=== PATIENT | female | born 1960 | race Caucasian/White ===

== ENCOUNTER 2020-03-06 23:17 | Emergency (ER) | payer OTHER ==
[~2020-03-06] VITALS: Ht 175.3 cm; Wt 68.0 kg
[2020-03-06 23:24] VITALS: BP 163/85
== END 2020-03-06 23:59 | disposition home or self-care (01) ==
LOC: ER 23:22
DX: R46.1 Bizarre personal appearance (principal); Z71.1 Person with feared health complaint in whom no diagnosis is made; J45.909 Unspecified asthma, uncomplicated; Z98.890 Other specified postprocedural states; Z90.89 Acquired absence of other organs; Z60.2 Problems related to living alone